=== PATIENT | male | born 1945 | race Caucasian/White ===

== ENCOUNTER 2016-11-21 08:28 | Day surgery (SDC) | payer MEDICARE, OTHER ==
[2016-11-13 08:48] VITALS: BMI 35.5
[~2016-11-21 08:28] MED LIST: LACTATED RINGERS 1,000 ML IV SCH; LIDOCAINE 1% 20 ML VIAL (10MG/ML) FOR IV START INTRADERMA PRN; SODIUM CHLORIDE 0.9% 1,000 ML IV SCH; ceFAZolin 1,000 MG in SODIUM CHLORIDE 0.9% IRRIGATIO 250 ML IRRIGATION ONE; ceFAZolin 2 GM in SODIUM CHLORIDE 0.9% 100 ML IVPB ONE
[2016-11-21] MEDS ORDERED: SODIUM CHLORIDE 0.9% 1,000 ML IV ONE (09:06)
[2016-11-21 09:35] LABS: Glucose,Whole Blood 170 mg/dL (75-99)
[2016-11-21] MEDS ORDERED: MIDAZOLAM 2 MG/2 ML VIAL ONE (10:37)
[2016-11-21] MEDS ORDERED: diphenhydrAMINE 50 MG/ML 1 ML VIAL ONE (10:37)
[2016-11-21] MEDS ORDERED: fentaNYL (PF) 50 MCG/ML 2 ML AMP ONE (10:37)
[2016-11-21] MEDS ORDERED: PROPOFOL 10 MG/ML 20 ML VIAL IV ONE (10:37)
[2016-11-21] MEDS ORDERED: IODIXANOL 320 MG/ML 100 ML IV ONE (11:00)
[2016-11-21] MEDS ORDERED: ACETAMINOPHEN TAB 325 MG TAB PO PRN (12:27)
[2016-11-21 13:36] LABS: Glucose,Whole Blood 187 mg/dL (75-99)
[2016-11-21 17:18] LABS: Glucose,Whole Blood 171 mg/dL (75-99)
[2016-11-21] MEDS ORDERED: VIT A,C & E-LUTEIN-MINERALS 1 EACH TAB PO SCH (18:00)
[2016-11-21] MEDS: ceFAZolin 2 GM in SODIUM CHLORIDE 0.9% 100 ML IVPB SCH ×2 (18:40→23:37)
[2016-11-21] MEDS: LISINOPRIL 20 MG TAB PO SCH (19:41)
[2016-11-21] MEDS: HYDROcodone/APAP 5-325MG 1 EACH TAB PO PRN (19:42)
[2016-11-21] MEDS: METOPROLOL TARTRATE 50 MG TAB PO SCH (19:42)
[2016-11-21 20:52] LABS: Glucose,Whole Blood 152 mg/dL (75-99)
[2016-11-21] MEDS ORDERED: NIACIN TR 500 MG CAPSULE.ER PO SCH (21:00)
[2016-11-21] MEDS ORDERED: ASPIRIN 81 MG CHEW PO SCH (21:00)
[2016-11-21] MEDS ORDERED: ATORVASTATIN 80 MG TAB PO SCH (21:00)
[2016-11-21] MEDS ORDERED: FERROUS SULFATE 325 MG TAB PO SCH (21:00)
--- NOTE | 2016-11-21 21:21 | P.PCN ---
Date of Procedure: 11/21/16 Preoperative Diagnosis: Ischemic cardiomyopathy and congestive heart failure Postoperative Diagnosis: The same Procedure(s) Performed: Upgrading the pacemaker to AICD, axillary venography Description of Procedure: HISTORY: This is a 70-year-old gentleman with history of ischemic cardiomyopathy and permanent pacemaker implantation being followed by Dr. Dykes. Because of persistent severe cardiomyopathy with ejection fraction of 30 -35%, Dr. Dykes requested upgrading the pacemaker to AICD. CONSENT:I have discussed the risks, benefits and alternative therapies for the above-mentioned procedure and for both sedation/analgesia as well as necessary blood product administration, if indicated, as they pertain to this patient. The patient has indicated understanding and acceptance of the risks and procedures discussed. PROCEDURE: Patient was brought to the lab in a fasting state. Patient was prepped and draped in the usual fashion. Patient was given IV sedation with fentanyl and Versed. The skin below the left clavicle was infiltrated with lidocaine. An incision was made along the old scar with extension both inferiorly and superiorly to accommodate AICD. It was deepened until the pectoral fascia was exposed. The pocket was opened and the old pulse generator was pulled out of the pocket. As patient is pacemaker dependent the leads were Connected to the old generator. Subsequently axillary venography was performed. Using Seldinger technique the axillary vein was entered and a new wire was advanced into the superior vena cava. A new sheath was advanced after using the several dilators for dilatation of the track. The ventricular lead was subsequently advanced through the sheath and was placed near the left ventricular apical region slightly away from the previous lead. A satisfactory position was obtained and the lead was screwed in. LEADS: ATRIAL: The atrial lead is manufactured by [employer] model number is 4135. The serial number is [id number]. VENTRICULAR: The old ventricular lead is manufactured by [employer] model number is 4136 and serial number is [id number]. THE NEW VENTRICULAR LEAD and this is manufactured by [employer]. Model number is 0292 and the serial number is [id number]. The old ventricular lead was capped and was sutured to the floor. THRESHOLDS: ATRIUM: The minimum pacing threshold was 0.7 V at pulse width of 0.5 ms with impedance of 600 ohms. . P-wave: 3.8 mV VENTRICLE : The minimum patient threshold was 0.7 V at pulse width 0.5 ms the impedance was 705 ohms R-wave: Could not be measured The leads and pulse generator remained in the pocket after it was washed with antibiotics. Pocket was closed in the usual fashion. The fascia was closed with 2-0 Prolene ,the subcutaneous tissue was closed with 3-0 Prolene and the skin was closed with 4-0 Prolene. DFT TESTING: Attempts were made to induce ventricular fibrillation with a T shock and burst pacing without success PROGRAMMING: ARNOLDO PROGRAMMING: MODE: DDDR mode RATE: 60/1 20 bpm : TACHYCARDIA PROGRAMMING: VF zone: Programmed to a rate of 205 bpm. Shocks were programmed at 41 J 8. VT zone. Programmed to a rate of 1 75 bpm. There appears were programmed to 31 J 1 followed by 41 J 5. FINAL IMPRESSION: #1 axillary venography #2. Successful implantation of dual- chamber AICD. #3 Capping of the old ventricular lead COMPLICATIONS: None PLAN: Continuation of medical therapy with antibiotics and resumption of home medication and will hold antiplatelet agents for 24-48 hours
[2016-11-22] MEDS: ceFAZolin 2 GM in SODIUM CHLORIDE 0.9% 100 ML IVPB SCH ×2 (06:02→11:04)
[2016-11-22 07:19] LABS: Glucose,Whole Blood 133 mg/dL (75-99)
[2016-11-22] MEDS ORDERED: PANTOPRAZOLE 40 MG TABLET PO SCH (07:30)
[2016-11-22 08:01] VITALS: RESP 18
--- NOTE | 2016-11-22 08:12 | XR ---
EXAMINATION TYPE: XR chest 2V DATE OF EXAM: 11/22/2016 6:22 AM COMPARISON: 05/13/2015 HISTORY: 70-year-old male lead placement check TECHNIQUE: Frontal and lateral views FINDINGS: Left anterior chest wall AICD generator with right atrial and 2 right ventricular leads. Median baca otomy wires are present with prosthetic aortic valve. Heart is upper limits of normal in size. Aorta and pulmonary vasculature within normal limits. No con solidation or pleural effusion. IMPRESSION: Left chest wall AICD generator with a right atrial and [address].
--- NOTE | 2016-11-22 08:33 | P.DS ---
Providers Date of admission: 11/21/2015 Attending physician: Edilberto Gallego Primary care physician: Stated None Hospital Course: This 70-year-old gentleman with ischemic cardiomyopathy and congestive heart failure was brought in for upgrading of the pacemaker to AICD. Patient had procedure done yesterday. He tolerated the procedure very well. Ventricular fibrillation could not be induced during the procedure. Patient developed mild hematoma around the pocket which seemed to be soft. Patient has remained stable overnight. His chest x-ray shows stable lead position without any evidence of pneumothorax or other complications. Device is interrogated this morning which showed stable thresholds. Patient is being discharged home. Patient is instructed to hold aspirin and Plavix and also metformin for 24 hours. Patient also instructed not to lift any heavy weights and also avoid any lifting or pushing and pulling. He'll keep his left arm below the shoulder level. He'll keep the incision dry for the next one week. Patient will be followed in the office in one week. Home medication will be resumed except holding metformin Plavix and aspirin for 24 hours. Prophylactic antibiotic be provided for 3 days. Plan - Discharge Summary New Discharge Prescriptions: Cephalexin [Keflex] 500 mg PO Q8HR #10 cap Discharge Medication List Aspirin 81 mg PO HS 05/11/15 [History] Atorvastatin [Lipitor] 80 mg PO HS 05/11/15 [History] Fenofibrate Nanocrystallized [Tricor] 145 mg PO DAILY 05/11/15 [History] Ferrous Sulfate [Feosol] 325 mg PO HS 05/11/15 [History] Lansoprazole [Prevacid] 30 mg PO DAILY 05/11/15 [History] Metoprolol Tartrate [Lopressor] 100 mg PO BID 05/11/15 [History] Vit A/Vit C/Vit E/Zinc/Copper [ICAPS SOFTGEL] 1 cap PO BID 05/11/15 [History] amLODIPine [Norvasc] 5 mg PO DAILY 05/11/15 [History] Clopidogrel [Plavix] 75 mg PO DAILY 11/29/15 [History] Lisinopril [Zestril] 20 mg PO BID 09/28/16 [History] Niacin [Niaspan] 500 mg PO HS 09/28/16 [History] metFORMIN HCL [Glucophage Xr] 500 mg PO DAILY 10/24/16 [History] Cephalexin [Keflex] 500 mg PO Q8HR #10 cap 11/22/16 [Rx] Follow up Appointment(s)/Referral(s): Edilberto Gallego MD [STAFF PHYSICIAN] - 1 Week Discharge Disposition: HOME SELF-CARE
[2016-11-22] MEDS: HYDROcodone/APAP 5-325MG 1 EACH TAB PO PRN (08:42)
[2016-11-22] MEDS: METOPROLOL TARTRATE 50 MG TAB PO SCH (08:42)
[2016-11-22] MEDS: LISINOPRIL 20 MG TAB PO SCH (08:42)
[2016-11-22] MEDS ORDERED: FENOFIBRATE 160 MG TAB PO SCH (09:00)
[2016-11-22] MEDS ORDERED: amLODIPine 5 MG TAB PO SCH (09:00)
[2016-11-22 12:06] VITALS: BP 165/79; PULSE 65; TEMP 98.7
== END 2016-11-22 12:28 | disposition home or self-care (01) ==
LOC: CATHEP 08:28 → 3OBS 12:27 → CATHEP 11-22 12:28
PROVIDERS: ATTEND Internal Medicine Cardiovascular Disease
DX: I25.5 Ischemic cardiomyopathy (principal); I50.42 Chronic combined systolic (congestive) and diastolic (congestive) heart failure; Z00.6 Encounter for examination for normal comparison and control in clinical research program; Z95.1 Presence of aortocoronary bypass graft; I10 Essential (primary) hypertension; E78.5 Hyperlipidemia, unspecified; Z95.2 Presence of prosthetic heart valve; E11.9 Type 2 diabetes mellitus without complications; Z79.84 Long term (current) use of oral hypoglycemic drugs; Z82.49 Family history of ischemic heart disease and other diseases of the circulatory system; Z79.82 Long term (current) use of aspirin; Z79.02 Long term (current) use of antithrombotics/antiplatelets; Z79.52 Long term (current) use of systemic steroids; Z79.899 Other long term (current) drug therapy; Z91.013 Allergy to seafood; Z91.09 Other allergy status, other than to drugs and biological substances; Z45.010 Encounter for checking and testing of cardiac pacemaker pulse generator [battery]
CPT/HCPCS: 33249; 33233; 71020; C1894; C1769; C1895; C1721; J2250; J1200; Q9967; J0690 ×2; J3010; J2704

== ENCOUNTER 2016-12-13 09:53 | Day surgery (SDC) | payer MEDICARE, OTHER ==
[2016-12-11 15:32] VITALS: BMI 36.9
[~2016-12-13 09:53] MED LIST changes: -LACTATED RINGERS 1,000 ML IV SCH; -LIDOCAINE 1% 20 ML VIAL (10MG/ML) FOR IV START INTRADERMA PRN; -SODIUM CHLORIDE 0.9% 1,000 ML IV SCH; -ceFAZolin 2 GM in SODIUM CHLORIDE 0.9% 100 ML IVPB ONE
[2016-12-13] MEDS: SODIUM CHLORIDE 0.9% 1,000 ML IV SCH (10:15)
[2016-12-13 10:23] LABS: Glucose,Whole Blood 138 mg/dL (75-99)
[2016-12-13 10:37] LABS: Anion Gap 10 mmol/L; Blood Urea Nitrogen 18 mg/dL (9-20); Calcium 9.3 mg/dL (8.4-10.2); Carbon Dioxide 25 mmol/L (22-30); Chloride 106 mmol/L (98-107); Glucose 143 mg/dL (74-99); Non-African American GFR(MDRD) >60 (>60 ml/min/1.73 sqM); Potassium 4.9 mmol/L (3.5-5.1); Sodium 141 mmol/L (137-145)
[2016-12-13 11:10] LABS: Basophils % (A) 1 %; CH 30.9; CHCM 32.9; Eosinophils # (A) 0.3 k/uL (0-0.7); Eosinophils % (A) 4 %; HDW 2.83; HGB 13.3 gm/dL (13.0-17.5); Luc # (Auto) 0.26; Luc % (Auto) 4; Lymphocytes # (A) 1.1 k/uL (1.0-4.8); Lymphocytes % (A) 18 %; MCH 31.3 pg (25.0-35.0); MCHC 33.2 g/dL (31.0-37.0); MCV 94.4 fL (80.0-100.0); Mean Platelet Volume 7.8; Monocytes # (A) 0.5 k/uL (0-1.0); Monocytes % (A) 9 %; Neutrophils # (A) 3.7 k/uL (1.3-7.7); Neutrophils % (A) 64 %; RBC 4.23 m/uL (4.30-5.90); RDW 13.3 % (11.5-15.5); WBC 5.9 k/uL (3.8-10.6); WBC (Perox) 6.17
[2016-12-13] MEDS: MIDAZOLAM 2 MG/2 ML VIAL IV ONE ×2 (11:30→11:51)
[2016-12-13] MEDS ORDERED: fentaNYL (PF) 50 MCG/ML 2 ML AMP IV ONE (11:34)
[2016-12-13] MEDS ORDERED: LIDOCAINE 2% INJ 20 MG/ML SQ ONE ×3 (11:35→11:44)
[2016-12-13] MEDS ORDERED: ceFAZolin 1,000 MG/50 ML BAG (PMX) IVPB ONE (11:35)
[2016-12-13] MEDS: ceFAZolin 2 GM in SODIUM CHLORIDE 0.9% 100 ML IVPB ONE ×2 (11:35→11:39)
[2016-12-13] MEDS ORDERED: MIDAZOLAM 2 MG/2 ML VIAL ONE (11:37)
[2016-12-13] MEDS ORDERED: fentaNYL (PF) 50 MCG/ML 2 ML AMP ONE (11:44)
[2016-12-13] MEDS ORDERED: LIDOCAINE 1% INJ 10MG/ML (20 ML MDV) SQ ONE ×2 (11:44→11:57)
[2016-12-13] MEDS ORDERED: ACETAMINOPHEN TAB 325 MG TAB PO PRN (12:17)
--- NOTE | 2016-12-13 12:22 | P.PCN ---
Date of Procedure: 12/13/16 Preoperative Diagnosis: Hematoma of AICD pocket Postoperative Diagnosis: The same Procedure(s) Performed: Evacuation of the hematoma and revision of the pocket Description of Procedure: This patient was brought in for evacuation of the hematoma. Patient had a upgrading of the pacemaker to AICD about 2 weeks ago. Patient developed moderate sized hematoma which seemed to be not resolving and in fact it is slightly bigger. There is no evidence of any infection fever or chills patient was brought in for elective evacuation of hematoma. Patient was prepped and draped in the usual fashion. His tachycardia therapies turned off. Patient was given IV Versed and fentanyl. The skin is infiltrated with lidocaine along the old incision. Incision was made along the old incision and was deepened until the device is exposed. About 30 mL of clots and hematoma was evacuated. The pocket was irrigated with antibiotic solution and suctioned. The pocket was closed in the usual fashion. The tachycardia therapies for program on. Patient thresholds remained stable. Patient is being admitted to the observation unit for Prophylactic antibiotic administration. If stable patient be discharged home tomorrow.
[2016-12-13] MEDS: HYDROcodone/APAP 5-325MG 1 EACH TAB PO PRN ×2 (12:56→23:25)
[2016-12-13 17:16] LABS: Glucose,Whole Blood 168 mg/dL (75-99)
[2016-12-13] MEDS: ceFAZolin 2 GM in SODIUM CHLORIDE 0.9% 100 ML IVPB SCH ×2 (18:34→23:25)
[2016-12-13] MEDS: LISINOPRIL 20 MG TAB PO SCH (20:31)
[2016-12-13] MEDS: METOPROLOL TARTRATE 50 MG TAB PO SCH (20:32)
[2016-12-13] MEDS ORDERED: NIACIN TR 500 MG CAPSULE.ER PO SCH (21:00)
[2016-12-13] MEDS ORDERED: FERROUS SULFATE 325 MG TAB PO SCH (21:00)
[2016-12-13] MEDS ORDERED: ATORVASTATIN 80 MG TAB PO SCH (21:00)
[2016-12-13] MEDS: VIT A,C & E-LUTEIN-MINERALS 1 EACH TAB PO SCH (21:09)
[2016-12-13 22:14] LABS: Glucose,Whole Blood 120 mg/dL (75-99)
[2016-12-14] MEDS: ceFAZolin 2 GM in SODIUM CHLORIDE 0.9% 100 ML IVPB SCH ×3 (05:30→12:45)
[2016-12-14 06:41] LABS: Glucose,Whole Blood 125 mg/dL (75-99)
[2016-12-14] MEDS ORDERED: PANTOPRAZOLE 40 MG TABLET PO SCH (07:30)
[2016-12-14 08:07] VITALS: RESP 18
[2016-12-14] MEDS: LISINOPRIL 20 MG TAB PO SCH (08:16)
[2016-12-14] MEDS: VIT A,C & E-LUTEIN-MINERALS 1 EACH TAB PO SCH (08:16)
[2016-12-14] MEDS: METOPROLOL TARTRATE 50 MG TAB PO SCH (08:17)
[2016-12-14] MEDS ORDERED: FENOFIBRATE 160 MG TAB PO SCH (09:00)
[2016-12-14] MEDS ORDERED: amLODIPine 5 MG TAB PO SCH (09:00)
[2016-12-14] MEDS ORDERED: metFORMIN 500 MG TAB PO SCH (09:00)
--- NOTE | 2016-12-14 11:01 | P.DS ---
Providers Attending physician: Edilberto Gallego Primary care physician: Stated None - Discharge Diagnosis(es) (1) History of automatic internal cardiac defibrillator (AICD) Current Visit: Yes Status: Acute (2) Coronary artery disease Current Visit: No Status: Acute (3) Diabetes Current Visit: No Status: Acute (4) Hx of CABG Current Visit: No Status: Acute (5) Hx of aortic valve replacement Current Visit: No Status: Acute (6) Hyperlipemia Current Visit: No Status: Acute (7) PAD (peripheral artery disease) Current Visit: No Status: Acute Priority: High (8) Hematoma of implantable cardioverter-defibrillator (ICD) pocket Current Visit: Yes Status: Acute Hospital Course: Patient had upgrading of permanent pacemaker to AICD about 2 weeks ago. Patient developed a hematoma of the pocket. For the last 2 weeks the size of the hematoma didn't get better. Patient is advised to have evacuation.. Patient had the procedure yesterday to evacuate the hematoma. About 30-40 mL of clot and fluid was aspirated. Patient tolerated the procedure well. Patient looks stable. patient doesn't complain of any pain. The site looks good without any hematoma. He is completing antibiotic course. He is being discharged home in a stable condition. He will restart his aspirin and Plavix starting tomorrow. Follow-up in the office in one week time. Patient will keep the area dry for one week .patient will continue prophylactic antibiotics for another 5 days Plan - Discharge Summary Discharge Medication List Aspirin 81 mg PO HS 05/11/15 [History] Atorvastatin [Lipitor] 80 mg PO HS 05/11/15 [History] Fenofibrate Nanocrystallized [Tricor] 145 mg PO DAILY 05/11/15 [History] Ferrous Sulfate [Feosol] 325 mg PO HS 05/11/15 [History] Lansoprazole [Prevacid] 30 mg PO DAILY 05/11/15 [History] Metoprolol Tartrate [Lopressor] 100 mg PO BID 05/11/15 [History] Vit A/Vit C/Vit E/Zinc/Copper [ICAPS SOFTGEL] 1 cap PO BID 05/11/15 [History] amLODIPine [Norvasc] 5 mg PO DAILY 05/11/15 [History] Clopidogrel [Plavix] 75 mg PO DAILY 11/29/15 [History] Lisinopril [Zestril] 20 mg PO BID 09/28/16 [History] Niacin [Niaspan] 500 mg PO HS 09/28/16 [History] metFORMIN HCL [Glucophage Xr] 500 mg PO DAILY 10/24/16 [History] Cephalexin [Keflex] 500 mg PO Q8HR #10 cap 11/22/16 [Rx] Follow up Appointment(s)/Referral(s): Edilberto Gallego MD [STAFF PHYSICIAN] - 1 Week Discharge Disposition: HOME SELF-CARE
[2016-12-14 12:18] LABS: Glucose,Whole Blood 162 mg/dL (75-99)
[2016-12-14 12:36] VITALS: BP 154/84; TEMP 98.5
[2016-12-14 12:52] VITALS: PULSE 0
[2016-12-14] MEDS: SODIUM CHLORIDE 0.9% 1,000 ML IV SCH (15:22)
== END 2016-12-14 14:45 | disposition home or self-care (01) ==
LOC: CATHEP 09:53 → 3OBS 12:16 → CATHEP 12-14 14:45
PROVIDERS: ATTEND Internal Medicine Cardiovascular Disease
DX: I97.638 Postprocedural hematoma of a circulatory system organ or structure following other circulatory system procedure (principal); Y83.8 Other surgical procedures as the cause of abnormal reaction of the patient, or of later complication, without mention of misadventure at the time of the procedure; Y71.0 Diagnostic and monitoring cardiovascular devices associated with adverse incidents; I25.5 Ischemic cardiomyopathy; I25.10 Atherosclerotic heart disease of native coronary artery without angina pectoris; Z95.1 Presence of aortocoronary bypass graft; I10 Essential (primary) hypertension; E78.5 Hyperlipidemia, unspecified; I50.42 Chronic combined systolic (congestive) and diastolic (congestive) heart failure; I73.9 Peripheral vascular disease, unspecified; Z95.820 Peripheral vascular angioplasty status with implants and grafts; I35.8 Other nonrheumatic aortic valve disorders; Z95.2 Presence of prosthetic heart valve; E11.9 Type 2 diabetes mellitus without complications; Z82.49 Family history of ischemic heart disease and other diseases of the circulatory system; Z79.01 Long term (current) use of anticoagulants; Z79.84 Long term (current) use of oral hypoglycemic drugs; Z79.82 Long term (current) use of aspirin; Z79.52 Long term (current) use of systemic steroids; Z79.899 Other long term (current) drug therapy; Z91.09 Other allergy status, other than to drugs and biological substances
CPT/HCPCS: 10140; 80048; 85025; 99155; 99157; J2250; J0690 ×2; J2001; J3010

== ENCOUNTER 2017-05-10 06:55 | Day surgery (SDC) | payer MEDICARE, OTHER ==
[2017-04-17 15:12] VITALS: BMI 36.3
[~2017-05-10 06:55] MED LIST changes: +LACTATED RINGERS 1,000 ML IV SCH; +LIDOCAINE 1% 20 ML VIAL (10MG/ML) FOR IV START INTRADERMA PRN; -ceFAZolin 1,000 MG in SODIUM CHLORIDE 0.9% IRRIGATIO 250 ML IRRIGATION ONE
[2017-05-10 07:10] VITALS: TEMP 98
[2017-05-10] MEDS ORDERED: LACTATED RINGERS 1,000 ML IV ONE (07:15)
[2017-05-10 07:16] LABS: Glucose,Whole Blood 111 mg/dL (75-99)
[2017-05-10] MEDS ORDERED: PROPOFOL 10 MG/ML 20 ML VIAL IV ONE (07:31)
--- NOTE | 2017-05-10 08:13 | P.PCN ---
Date of Procedure: 05/10/17 Preoperative Diagnosis: Postoperative Diagnosis: Procedure(s) Performed: BRIEF HISTORY: Patient is a 71-year-old pleasant male, scheduled for an elective colonoscopy as a part of evaluation of prior history of colon polyps. His last colonoscopy was in 2010. PROCEDURE PERFORMED: Colonoscopy with snare polypectomy. PREOPERATIVE DIAGNOSIS: History of colon polyps. IV sedation per Anesthesia. PROCEDURE: After informed consent was obtained, the patient, was brought into the endoscopy unit. IV sedation was administered by Anesthesia under continuous monitoring. Digital rectal examination was normal. Initially the Olympus CF- 160 flexible video colonoscope was then inserted in the rectum, gradually advanced into the cecum without any difficulty. Careful examination was performed as the scope was gradually being withdrawn. Ileocecal valve and the appendiceal orifice were visualized and appeared normal. Prep was excellent. Mucosa of the cecum, appeared normal. In the ascending colon there was a 3 cm broad-based polyp that was removed by piecemeal snare polypectomy and complete polypectomy was accomplished. In the hepatic flexure there were 2 polyps measuring 1 cm in size both of which were removed by snare polypectomy. In the hospital transverse colon there were 2 polyps both of which measuring 1.5-2 cm in size and broad-based removed by snare polypectomy. In the rectum there was a 5 mm polyp removed by snare polypectomy. Moderate diverticulosis seen. The rest of the ascending colon, transverse colon, descending colon, sigmoid colon, and rectum appeared normal. Retroflexion was performed in the rectum and no lesions were seen. The patient tolerated the procedure well. IMPRESSION: 3 cm was broad-based ascending colon polyp serous was snare polypectomy 1 cm 2 hepatic flexure polyp status post snare polypectomy 2 broad-based polyps in the proximal transverse colon measuring 1.5-2 cm in size status post snare polypectomy. 5 mm mid rectal polyp status post polypectomy Moderate diverticulosis. RECOMMENDATIONS: Findings of this examination were discussed with the patient as well as his family. He was advised to follow with the biopsy results. If the biopsies are negative adenoma he can have a repeat colonoscopy in 2-3 years. Implants: Indications for Procedure: Operative Findings: Description of Procedure:
[2017-05-10 08:18] VITALS: RESP 16
[2017-05-10 08:29] VITALS: BP 108/64; PULSE 60
== END 2017-05-10 09:16 | disposition home or self-care (01) ==
LOC: ORWHC2ENDO 06:55
PROVIDERS: ATTEND Internal Medicine Gastroenterology
DX: Z12.11 Encounter for screening for malignant neoplasm of colon (principal); C18.2 Malignant neoplasm of ascending colon; D12.3 Benign neoplasm of transverse colon; K62.1 Rectal polyp; K57.30 Diverticulosis of large intestine without perforation or abscess without bleeding; Z86.010 Personal history of colon polyps; I10 Essential (primary) hypertension; E78.5 Hyperlipidemia, unspecified; Z95.0 Presence of cardiac pacemaker; E11.9 Type 2 diabetes mellitus without complications; Z79.84 Long term (current) use of oral hypoglycemic drugs; K21.9 Gastro-esophageal reflux disease without esophagitis; Z79.02 Long term (current) use of antithrombotics/antiplatelets; Z79.82 Long term (current) use of aspirin; Z79.899 Other long term (current) drug therapy; Z91.041 Radiographic dye allergy status
CPT/HCPCS: 88305; 45385; J2704

== ENCOUNTER → 2017-06-03 | Outpatient (CLI) | payer MEDICARE, OTHER ==
[2017-06-03 13:26] LABS: CH 29.8; CHCM 33.3; HCT 35.9 % (39.0-53.0); HDW 2.87; HGB 12.2 gm/dL (13.0-17.5); MCH 30.7 pg (25.0-35.0); MCHC 34.1 g/dL (31.0-37.0); MCV 90.1 fL (80.0-100.0); RBC 3.98 m/uL (4.30-5.90); RDW 14.3 % (11.5-15.5)
[2017-06-03 13:49] LABS: Anion Gap 12 mmol/L; Blood Urea Nitrogen 18 mg/dL (9-20); Carbon Dioxide 26 mmol/L (22-30); Chloride 103 mmol/L (98-107); Non-African American GFR(MDRD) >60 (>60 ml/min/1.73 sqM); Potassium 4.8 mmol/L (3.5-5.1); Sodium 141 mmol/L (137-145)
== END | disposition home or self-care (01) ==
LOC: LABPAT 13:08
PROVIDERS: ATTEND Internal Medicine Interventional Cardiology
DX: Z01.812 Encounter for preprocedural laboratory examination (principal); I70.213 Atherosclerosis of native arteries of extremities with intermittent claudication, bilateral legs
CPT/HCPCS: 80051; 82565; 84520; 85027

== ENCOUNTER → 2017-06-10 | Day surgery (SDC) | payer MEDICARE, OTHER ==
[2017-06-03 14:34] VITALS: BMI 35.3
[~2017-06-10] MED LIST changes: +ALPRAZolam 0.25 MG TAB PO PRN; +ASPIRIN 325 MG TAB PO STA; +HEPARIN SODIUM 1,000 UN/ML (10ML VL) IV ONE; +INSULIN LISPRO (humaLOG) 300 UNIT/3 ML VIAL SQ ONE; +IODIXANOL 320 MG/ML 100 ML INTRAARTER ONE; -LACTATED RINGERS 1,000 ML IV SCH; -LIDOCAINE 1% 20 ML VIAL (10MG/ML) FOR IV START INTRADERMA PRN; +LIDOCAINE 2% INJ 20 MG/ML SQ ONE; +MIDAZOLAM 2 MG/2 ML VIAL IV ONE; +RX INFO: IV CONTRAST WAS GIVEN 1 EACH MISC MISCELLANE PRN; +SODIUM CHLORIDE 0.9% 1,000 ML IV SCH; +SODIUM CHLORIDE 0.9% 1,000 ML in EMPTY BAG 1 BAG IV ONE
[2017-06-10 07:09] VITALS: RESP 20
[2017-06-10 07:12] LABS: Glucose,Whole Blood 189 mg/dL (75-99)
[2017-06-10] MEDS: VERAPAMIL SYRINGE (5 MG/10 ML) INTRAARTER ONE ×2 (07:55→08:28)
[2017-06-10 08:52] VITALS: TEMP 98
--- NOTE | 2017-06-10 09:01 | IR ---
EXAMINATION TYPE: IR angio abdominal w runoff DATE OF EXAM: 06/10/2017 CLINICAL HISTORY: Left leg pain TECHNIQUE: Fluoroscopy. COMPARISON: None. FINDINGS: Fluoroscopic guidance was provided during angiogram procedure performed by Dr. Abbott. A to elaina of 6.2 minutes of fluoroscopic time was utilized during the procedure and multiple cine images ar e acquired but not saved to PACS. Please refer to procedure note for further details as I was not pre sent nor performed procedure. IMPRESSION: As Above.
[2017-06-10 11:50] LABS: Glucose,Whole Blood 240 mg/dL (75-99)
[2017-06-10 14:33] VITALS: PULSE 70
[2017-06-10 14:39] VITALS: BP 131/72
--- NOTE | 2017-06-10 21:48 | PCN ---
DATE OF PROCEDURE: 06/10/2017 PERFORMING PHYSICIAN: Fabian Abbott M.D., gage designer. PROCEDURES PERFORMED: 1. Abdominal aortogram. 2. Bilateral lower extremity runoff. 3. Selective left external iliac artery angiogram. INDICATION: This is a pleasant 71-year-old gentleman who is known to have PAD who underwent multiple angioplasties in the past. He was experiencing severe left leg discomfort. He underwent an arterial duplex study which showed severe disease of the left SFA, and he was brought today to undergo an abdominal aortogram and bilateral lower extremity runoff. APPROACH: Right radial artery. COMPLICATIONS: None. LEVEL OF SEDATION: Moderate with a sedation length of 35 minutes. PROCEDURE DESCRIPTION: After obtaining informed consent, the patient was brought to the cardiac cemetery laborer. The right radial artery was cannulated using micropuncture technique. The micropuncture wire passed easily. Then I placed a 5 Bahamian sheath in the right radial artery. Subsequently I gave the patient 5000 units of heparin IV and 2 mg of Verapamil IA. After that I did an abdominal aortogram and bilateral lower extremity runoff using 5 Bahamian pigtail catheter, which was initially placed at the level of the renal arteries, then it was advanced into above the bifurcation of the aorta to right and left common iliac arteries. The procedure was completed without any complications. After that I did selective left external iliac artery angiogram to have a better opacification of the left SFA and left below the knee. SELECTIVE PERIPHERAL ANGIOGRAM: 1. The aorta is calcified with mild disease only. 2. Common iliac arteries. The right common iliac artery is stented. The stent is patent. The left common iliac artery appeared to be patent as well. 3. Internal iliac arteries. The right and left internal iliac arteries are patent. 4. External iliac arteries: The right and left external iliac arteries appear to have mild disease only. 5. Common femoral arteries. The right common femoral artery appeared to have mild disease only. The left common femoral artery appeared to have a lesion that seemed to be in the range of 70% to 80%. 6. Profundae. The right and left profundae are patent. 7. SFA. The right SFA appeared to be stented, with severe in-stent restenosis by the [place]. The left SFA is occluded on short segment from the mid portion and reconstitutes just above the [place]. 8. Popliteal. The right and left popliteals appeared to have mild disease only. 9. Below the knee. There is 3-vessel runoff below the knee bilaterally. CONCLUSION: 1. Mild aortoiliac disease. 2. Severe disease involving the left common femoral artery. 3. Severe bilateral SFA disease with severe in-stent restenosis of the right SFA and occluded left SFA on short segment. 4. Three-vessel runoff below the knee bilaterally. POST-PROCEDURE MANAGEMENT: The patient will be scheduled to have SENIOR CLINICAL STUDY MANAGER of the left SFA. SCOTT
== END ==
LOC: CATHCVL 06:32
PROVIDERS: ATTEND Internal Medicine Interventional Cardiology
DX: T82.856A Stenosis of peripheral vascular stent, initial encounter (principal); I11.0 Hypertensive heart disease with heart failure; I50.42 Chronic combined systolic (congestive) and diastolic (congestive) heart failure; Z87.891 Personal history of nicotine dependence; I70.0 Atherosclerosis of aorta; E78.5 Hyperlipidemia, unspecified; I25.5 Ischemic cardiomyopathy; I47.1 Supraventricular tachycardia; E11.9 Type 2 diabetes mellitus without complications; Z79.84 Long term (current) use of oral hypoglycemic drugs; Z79.899 Other long term (current) drug therapy; Z91.09 Other allergy status, other than to drugs and biological substances
CPT/HCPCS: 36216; 75625; 75716; 99152; 99153; C1769 ×2; C1894; J2001; J2250; Q9967; J1644

== ENCOUNTER 2017-06-19 11:21 | Day surgery (SDC) | payer MEDICARE, OTHER ==
[2017-06-14 10:05] VITALS: BMI 34.7
[~2017-06-19 11:21] MED LIST changes: -ALPRAZolam 0.25 MG TAB PO PRN; -ASPIRIN 325 MG TAB PO STA; -HEPARIN SODIUM 1,000 UN/ML (10ML VL) IV ONE; -INSULIN LISPRO (humaLOG) 300 UNIT/3 ML VIAL SQ ONE; -IODIXANOL 320 MG/ML 100 ML INTRAARTER ONE; -LIDOCAINE 2% INJ 20 MG/ML SQ ONE; -MIDAZOLAM 2 MG/2 ML VIAL IV ONE; -RX INFO: IV CONTRAST WAS GIVEN 1 EACH MISC MISCELLANE PRN; -SODIUM CHLORIDE 0.9% 1,000 ML IV SCH
[2017-06-19 12:40] LABS: Glucose,Whole Blood 181 mg/dL (75-99)
[2017-06-19] MEDS ORDERED: MIDAZOLAM 2 MG/2 ML VIAL IV ONE (14:04)
[2017-06-19] MEDS ORDERED: LIDOCAINE 2% INJ 20 MG/ML SQ ONE (14:05)
[2017-06-19] MEDS: fentaNYL (PF) 50 MCG/ML 2 ML AMP IV ONE ×2 (14:07→15:48)
[2017-06-19] MEDS ORDERED: SODIUM CHLORIDE 0.9% 1,000 ML IV ONE (14:18)
[2017-06-19] MEDS ORDERED: NITROGLYCERIN 1000MCG/10ML SYRINGE INTRAARTER ONE (15:32)
[2017-06-19] MEDS ORDERED: niCARdipine Syringe (1,000 mcg/10 mL) INTRAARTER ONE (15:53)
[2017-06-19] MEDS ORDERED: CLOPIDOGREL 75 MG TAB PO ONE (16:00)
[2017-06-19] MEDS ORDERED: IODIXANOL 320 MG/ML 100 ML INTRAARTER ONE (16:01)
[2017-06-19] MEDS ORDERED: diphenhydrAMINE 25 MG CAP PO PRN (16:12)
[2017-06-19] MEDS ORDERED: predniSONE 20 MG TAB PO PRN (16:12)
[2017-06-19] MEDS ORDERED: SODIUM CHLORIDE 0.9% 1,000 ML IV SCH (16:15)
[2017-06-19] MEDS ORDERED: NON-FORMULARY DRUG (Ranitidine Hcl [Zantac] 150 MG) PO SCH (16:15)
[2017-06-19 17:42] LABS: Glucose,Whole Blood 149 mg/dL (75-99)
[2017-06-19 18:59] VITALS: RESP 18
[2017-06-19] MEDS: LISINOPRIL 20 MG TAB PO SCH (20:05)
[2017-06-19] MEDS: METOPROLOL TARTRATE 50 MG TAB PO SCH (20:05)
[2017-06-19] MEDS: VIT A,C & E-LUTEIN-MINERALS 1 EACH TAB PO SCH (20:05)
[2017-06-19 20:42] LABS: Glucose,Whole Blood 186 mg/dL (75-99)
[2017-06-19] MEDS ORDERED: NIACIN TR 500 MG CAPSULE.ER PO SCH (21:00)
[2017-06-19] MEDS ORDERED: FERROUS SULFATE 325 MG TAB PO SCH (21:00)
[2017-06-19] MEDS ORDERED: ATORVASTATIN 80 MG TAB PO SCH (21:00)
[2017-06-19] MEDS ORDERED: ASPIRIN 81 MG CHEW PO SCH (21:00)
[2017-06-20 05:54] LABS: Glucose,Whole Blood 120 mg/dL (75-99)
[2017-06-20 06:01] LABS: Basophils % (A) 0 %; CH 30.6; CHCM 32.9; Eosinophils % (A) 0 %; HCT 38.5 % (39.0-53.0); HDW 2.51; HGB 12.4 gm/dL (13.0-17.5); Luc # (Auto) 0.27; Luc % (Auto) 2; Lymphocytes # (A) 1.6 k/uL (1.0-4.8); Lymphocytes % (A) 11 %; MCH 30.1 pg (25.0-35.0); MCHC 32.3 g/dL (31.0-37.0); MCV 93.2 fL (80.0-100.0); Mean Platelet Volume 8.9; Monocytes # (A) 0.8 k/uL (0-1.0); Monocytes % (A) 6 %; Neutrophils # (A) 11.5 k/uL (1.3-7.7); Neutrophils % (A) 81 %; RBC 4.13 m/uL (4.30-5.90); RDW 14.7 % (11.5-15.5); WBC 14.3 k/uL (3.8-10.6); WBC (Perox) 14.89
[2017-06-20 06:10] LABS: Anion Gap 11 mmol/L; Blood Urea Nitrogen 17 mg/dL (9-20); Calcium 8.9 mg/dL (8.4-10.2); Carbon Dioxide 23 mmol/L (22-30); Chloride 106 mmol/L (98-107); Glucose 113 mg/dL (74-99); Non-African American GFR(MDRD) >60 (>60 ml/min/1.73 sqM); Sodium 140 mmol/L (137-145)
[2017-06-20] MEDS: LISINOPRIL 20 MG TAB PO SCH (08:29)
[2017-06-20] MEDS: METOPROLOL TARTRATE 50 MG TAB PO SCH (08:29)
[2017-06-20] MEDS: VIT A,C & E-LUTEIN-MINERALS 1 EACH TAB PO SCH (08:29)
[2017-06-20 08:32] VITALS: BP 121/57; PULSE 66; TEMP 98.5
[2017-06-20] MEDS ORDERED: FENOFIBRATE 160 MG TAB PO SCH (09:00)
[2017-06-20] MEDS ORDERED: CLOPIDOGREL 75 MG TAB PO SCH (09:00)
[2017-06-20] MEDS ORDERED: SPIRONOLACTONE 25 MG TAB PO SCH (09:00)
[2017-06-20] MEDS ORDERED: amLODIPine 5 MG TAB PO SCH (09:00)
[2017-06-20] MEDS ORDERED: PANTOPRAZOLE 40 MG TABLET PO SCH (09:00)
--- NOTE | 2017-06-20 11:38 | PCN ---
PERFORMING PHYSICIAN: Fabian Abbott M.D., pin cleaner. PROCEDURE PERFORMED: 1. Selective left below the knee angiogram. 2. Selective left SFA angiogram. 3. Atherectomy of the left SFA using the Turbo Hawk device. 4. Successful balloon angioplasty of the proximal and mid left SFA. 5. Stenting of the distal left SFA using 7.0 x 40 mm self expandable stent with good angiographic results. 6. Intravascular ultrasound of the left SFA. 7. Selective right common femoral artery angiogram. INDICATIONS: This is a pleasant 71 -year-old gentleman who was experiencing severe claudication of the left leg. He underwent peripheral angiogram a few weeks ago and that showed occluded left SFA. He was brought today to undergo a RETAIL ROUTE SUPERVISOR. APPROACH: Right common femoral artery. COMPLICATIONS: None. LEVEL OF SEDATION: Moderate with a sedation length of one hour and 56 minutes. PROCEDURE DESCRIPTION: After obtaining informed consent, the patient was brought to the cardiac laborer carpentry dock. The right common femoral artery was cannulated using micropuncture technique. The micropuncture wire passed easily and then I placed a 6 Latvian sheath in the right common femoral artery. Subsequently I did start anticoagulation using heparin and the patient was given a total of 10, 000 units of heparin IV. Then I did selective SFA using 5 Latvian Rim catheter with 035 Advantage wire. Subsequently, I did exchange my 11 cm sheath into 55 cm 6 Latvian sheath using the Advantage wire and the tip of the sheath was positioned in the left common femoral artery. After that, I did exchange my 035 wire into 014 Ironman using an 014 using an 035 QuickCross catheter. After that, I did multiple runs of the directional atherectomy using the Turbo Hawk device and I was able to extract significant amount of plaque from the left SFA. After that, I did balloon angioplasty using 5-0 x 250 mm balloon. The following angiogram showed good angiographic results. I did intravascular ultrasound which showed me the exact diameter of the artery as well. After that I did balloon angioplasty of the stented segment in the distal left SFA using angio sculpt balloon. I did stenting of the distal left SFA using 7.0 x 40 mm balloon. The following angiogram showed good angiographic results without complication and without dissection. After that, I did exchange my long sheath into short sheath using the Advantage wire. I did selective right common femoral artery angiogram. The procedure was completed without complication. POSTPROCEDURE MANAGEMENT: 1. Dual antiplatelet therapy. 2. Risk factor modifications. 3. Follow-up with the patient. SCOTT
[2017-06-20 12:16] LABS: Hemoglobin A1C 6.1 % (4.2-6.1)
--- NOTE | 2017-06-20 14:54 | IR ---
Fluoroscopy HISTORY: Pain 34.4 minutes fluoroscopy time supplied to the referring clinician. 697 intraoperative C-arm images d ocument the procedure. See dictated report from cardiology.
--- NOTE | 2017-06-25 11:47 | DS ---
ADMISSION DATE: 06/19/2017 DISCHARGE DATE: 06/20/2017 BRIEF HISTORY: This is a pleasant 71-year-old gentleman who was admitted to the hospital yesterday and underwent successful balloon angioplasty of the left superficial femoral artery with a good angiographic results and without any complication. The procedure was performed from the right groin which is soft and nontender and without any bruises. The patient is going to be discharged home on dual antiplatelet therapy and statin and I will follow up with the patient as an outpatient in the office in a week. SCOTT
== END 2017-06-20 11:51 | disposition home or self-care (01) ==
LOC: CATHCVL 11:21 → 6SEL 18:00 → CATHCVL 06-20 11:51
PROVIDERS: ATTEND Internal Medicine Interventional Cardiology
DX: I77.9 Disorder of arteries and arterioles, unspecified (principal); I73.9 Peripheral vascular disease, unspecified; Z95.820 Peripheral vascular angioplasty status with implants and grafts; I25.10 Atherosclerotic heart disease of native coronary artery without angina pectoris; Z95.1 Presence of aortocoronary bypass graft; I25.5 Ischemic cardiomyopathy; E11.9 Type 2 diabetes mellitus without complications; E78.5 Hyperlipidemia, unspecified; I50.42 Chronic combined systolic (congestive) and diastolic (congestive) heart failure; I11.0 Hypertensive heart disease with heart failure; Z95.810 Presence of automatic (implantable) cardiac defibrillator; I44.1 Atrioventricular block, second degree; Z82.49 Family history of ischemic heart disease and other diseases of the circulatory system; Z91.09 Other allergy status, other than to drugs and biological substances; Z87.891 Personal history of nicotine dependence; Z79.84 Long term (current) use of oral hypoglycemic drugs; Z79.02 Long term (current) use of antithrombotics/antiplatelets; Z79.52 Long term (current) use of systemic steroids; Z79.899 Other long term (current) drug therapy
CPT/HCPCS: 37227; 37252; 80048; 83036; 85025; 99152; 99153 ×7; C1769 ×7; C1894 ×2; C1725 ×3; C1887; C1876; C1714; C1753; C2623 ×2; J2001; J2250; Q9967; J3010; J1644

== ENCOUNTER → 2017-07-05 | Outpatient (CLI) | payer MEDICARE, OTHER ==
--- NOTE | 2017-07-05 15:09 | CT ---
EXAMINATION TYPE: CT abdomen pelvis wo con DATE OF EXAM: 07/05/2017 COMPARISON: NONE HISTORY: Colon Cancer CT DLP: 1041.70 mGycm Automated exposure control for dose reduction was used. TECHNIQUE: Helical acquisition of images was performed from the lung bases through the pelvis. FINDINGS: The examination of the solid viscera is limited secondary to the lack of intravenous contra st. LUNG BASES: Lingular atelectasis is seen with prominent left epicardial fat. LIVER/GB: At the dome of the liver along the right hemidiaphragm on series 3 image 12 there is an are a of hypoattenuation that is thought to relate to volume averaging of the hemidiaphragm when correlat ed on sagittal and coronal planes as it has obtuse angles. There is diffuse hypoattenuation of the he patic parenchyma, more pronounced within the right lobe representing underlying hepatic steatosis. Th is finding limits evaluation for hepatic masses as does the absence of intravenous contrast. PANCREAS: No significant abnormality is seen. SPLEEN: No significant abnormality is seen. ADRENALS: No significant abnormality is seen. KIDNEYS: Right lower pole renal calculus is thought to be vascular. Similarly left-sided renal vascul ar calcifications are seen. No evidence of hydronephrosis or obstructive uropathy. Mild nonspecific b ilateral perinephric fat stranding is noted. FREE AIR: No free air is visualized RETROPERITONEAL ADENOPATHY: None visualized REPRODUCTIVE ORGANS: Prostate gland is not enlarged heterogenous containing central gland calcificati ons. URINARY BLADDER: No significant abnormality is seen. PELVIC ADENOPATHY: None visualized. OSSEOUS STRUCTURES: No suspicious abnormality. Diffuse degenerative changes are appreciated of the l umbar spine.. BOWEL: Numerous sigmoid diverticula are present with bowel wall thickening of the sigmoid colon in a long segment extending to the junction of the descending colon and sigmoid colon with circumferentia l bowel wall thickening measuring up to 1.5 cm in the nondependent wall. The appendix is partially ai r-filled and within normal limits of size. OTHER: Bilateral fat filled inguinal hernias are present, right greater than left with small bowel lo op abutting the right inguinal hernia. VASCULATURE: Fusiform ectasia of the infrarenal abdominal aorta is seen at the level of L3 spanning 3 .6 cm in length measuring 2.4 cm in anterior posterior dimension. IMPRESSION: 1. NO EVIDENCE OF VISCERAL OR OSSEOUS METASTASIS. ALTHOUGH EVALUATION FOR VISCERAL METASTASIS IS SLIG HTLY DIMINISHED GIVEN HEPATIC STEATOSIS AND LACK OF INTRAVENOUS CONTRAST. 2. LONG SEGMENT BOWEL WALL THICKENING OF THE SIGMOID COLON WHICH MAY CORRESPOND TO THE PATIENT'S KNOW N COLON CARCINOMA THERE ARE NO POSTSURGICAL CHANGES VISUALIZED.
== END | disposition home or self-care (01) ==
LOC: RADCTMAIN 11:58
PROVIDERS: ATTEND Surgery
DX: C18.9 Malignant neoplasm of colon, unspecified (principal); K76.0 Fatty (change of) liver, not elsewhere classified
CPT/HCPCS: 36415; 74176; 82378; 82565; 84520

== ENCOUNTER → 2017-07-10 | Outpatient (CLI) | payer MEDICARE, OTHER | END | disposition home or self-care (01) | LOC: LABPAT 13:33 → LABWHC1 13:33 | PROVIDERS: ATTEND Surgery | DX: Z01.818 Encounter for other preprocedural examination (principal); I10 Essential (primary) hypertension | CPT/HCPCS: 36415; 93005 ==

== ENCOUNTER 2017-07-26 08:05 | Day surgery (SDC) | payer MEDICARE, OTHER ==
[2017-07-25 08:27] VITALS: BMI 34.7
[~2017-07-26 08:05] MED LIST changes: +LACTATED RINGERS 1,000 ML IV SCH; -SODIUM CHLORIDE 0.9% 1,000 ML in EMPTY BAG 1 BAG IV ONE
[2017-07-26] MEDS ORDERED: MIDAZOLAM 2 MG/2 ML VIAL ONE (08:42)
[2017-07-26] MEDS ORDERED: PROPOFOL 10 MG/ML 20 ML VIAL IV ONE (08:42)
[2017-07-26 08:48] LABS: Glucose,Whole Blood 126 mg/dL (75-99)
--- NOTE | 2017-07-26 09:55 | P.OP ---
Date of Procedure: 08/02/17 Preoperative Diagnosis: Ascending colon cancer Postoperative Diagnosis: Mulitple polyps Extensive descenindg colon and sigmoid diverticulosis: Procedure(s) Performed: Colonoscopy with biopsy using hot snare and cold biopsy forcep spot marking of suspicious polyps Implants: Anesthesia: XIANG Surgeon: Festus Salas Condition: stable Indications for Procedure: Biopsy proven colon cancer and ascending colon, thickening of the sigmoid colon on CAT scan. Marking of the suspicious polyps Operative Findings: 1- cecal biopsy 2- ascending colon polyp 75 cm from anus and 10 cm poximal from cecum 3- proximal transverse colon polyp (marked with spot) 4- Mid transverse polyp 5--Descending colon polyp 6-Descending colon biopsy at 45 cm 7-Sigmoid biospy 8- REctrosigmoid polyps 9- Multiple rectal polyps in mid to lower rectum Description of Procedure: The patient was brought to the endoscopy suite and placed in lateral decubitus position. IV sedation was given as per anesthesia team. A timeout was performed to verify correct patient and correct procedure.Perianal examination did not reveal any external hemorrhoids. Digital rectal examination was performed. Minimally enlarged prostate. A well- lubricated endoscope was passed per rectally and was gradually advanced beyond the sigmoid colon, splenic flexure, transverse colon, hepatic flexure and cecum. The ileocecal valve was visualized. There was extensive diverticulosis with thickening and a lot of spasm in the sigmoid there is decreased amount of diverticulosis in the descending colon transverse colon and minimal in the ascending colon. As noted the sigmoid colon seemed thickened probably due to the extensive diverticulosis. There were multiple polyps that were noted throughout the colon. All of them have been noted the larger polyps in the ascending colon and the proximal transverse colon were all marked with spot ink. Further polyps were found in the mid traps: Ascending colon sigmoid colon and rectum which were all biopsied as well.. Bowel prep was good. The scope was gradually withdrawn. Patient tolerated the procedure well and was taken to post anesthesia care unit in stable condition. Recommend repeat colonoscopy in 1 years=
[2017-07-26 10:06] VITALS: TEMP 98
[2017-07-26 10:27] VITALS: RESP 16
[2017-07-26 10:54] VITALS: BP 117/61; PULSE 61
== END 2017-07-26 11:25 | disposition home or self-care (01) ==
LOC: ORWHC2ENDO 08:05
PROVIDERS: ATTEND Surgery
DX: K63.5 Polyp of colon (principal); C18.2 Malignant neoplasm of ascending colon; K62.1 Rectal polyp; K57.30 Diverticulosis of large intestine without perforation or abscess without bleeding; I25.10 Atherosclerotic heart disease of native coronary artery without angina pectoris; I10 Essential (primary) hypertension; E78.5 Hyperlipidemia, unspecified; H35.30 Unspecified macular degeneration; K21.9 Gastro-esophageal reflux disease without esophagitis; Z87.891 Personal history of nicotine dependence; Z95.810 Presence of automatic (implantable) cardiac defibrillator; I25.2 Old myocardial infarction; Z91.041 Radiographic dye allergy status; Z79.84 Long term (current) use of oral hypoglycemic drugs; Z79.02 Long term (current) use of antithrombotics/antiplatelets; Z79.82 Long term (current) use of aspirin; Z79.899 Other long term (current) drug therapy
CPT/HCPCS: 88305; 45380; 45385; 44404; J2250; J2704

== ENCOUNTER → 2017-10-11 | Outpatient (CLI) | payer MEDICARE, OTHER ==
[2017-10-11 14:51] LABS: ALT 53 U/L (21-72); AST 38 U/L (17-59); Cholesterol 146 mg/dL (<200); HDL Cholesterol 41 mg/dL (40-60)
== END | disposition home or self-care (01) ==
LOC: LABWHC1 13:53
PROVIDERS: ATTEND Internal Medicine Interventional Cardiology
DX: E78.2 Mixed hyperlipidemia (principal)
CPT/HCPCS: 36415; 80061; 84450; 84460

== ENCOUNTER 2018-04-04 18:11 | Emergency (ER) | payer MEDICARE, OTHER ==
[2018-04-04 18:20] VITALS: RESP 18; TEMP 97.4
[2018-04-04] MEDS ORDERED: SODIUM CHLORIDE 0.9% 1,000 ML IV STA ×2 (18:38→20:16)
--- NOTE | 2018-04-04 18:51 | ED ---
General Adult HPI - General Chief complaint: Alcohol Stated complaint: Lethargy Time Seen by Provider: 04/04/18 18:17 Source: EMS, RN notes reviewed, old records reviewed Mode of arrival: EMS Limitations: no limitations - History of Present Illness Initial comments: This is a 72-year-old male to the ER for evaluation. Today he presents for evaluation regarding altered mental status. Family and cracking machine operator do admit the patient was drinking today patient herself admits to be to being drinking today mailroom clerk says she gave him one drink patient says he had 3 drinks patient also has history of multiple falls, acting incoherent slurring speech - Related Data Home Medications Medication Instructions Recorded Confirmed Aspirin 81 mg PO HS 05/11/15 04/04/18 Ferrous Sulfate [Feosol] 325 mg PO HS 05/11/15 04/04/18 Lansoprazole [Prevacid] 30 mg PO QAM 05/11/15 04/04/18 Vit A/Vit C/Vit E/Zinc/Copper 1 cap PO QAM 05/11/15 04/04/18 [ICAPS SOFTGEL] amLODIPine [Norvasc] 5 mg PO BID 05/11/15 04/04/18 Clopidogrel [Plavix] 75 mg PO QAM 11/29/15 04/04/18 Lisinopril [Zestril] 20 mg PO BID 09/28/16 04/04/18 Spironolactone [Aldactone] 25 mg PO QAM 04/17/17 04/04/18 Fenofibrate Nanocrystallized 145 mg PO QAM 07/09/17 04/04/18 [Tricor] metFORMIN HCL [Glucophage Xr] 500 mg PO QAM 07/09/17 04/04/18 Atorvastatin [Lipitor] 80 mg PO HS 04/04/18 04/04/18 Cyanocobalamin (Vitamin B-12) 1,000 mcg PO QAM 04/04/18 04/04/18 [Vitamin B-12] Metoprolol Tartrate [Lopressor] 100 mg PO BID 04/04/18 04/04/18 Niacin 500 mg PO HS 04/04/18 04/04/18 Allergies Allergy/AdvReac Type Severity Reaction Status Date / Time Iodinated Contrast- Oral and Allergy Rash/Hives, Verified 04/04/18 18:57 IV Dye scabs, [Iodinated Contrast Media - peeling IV Dye] skin Review of Systems ROS Statement: Those systems with pertinent positive or pertinent negative responses have been documented in the HPI. ROS Other: All systems not noted in ROS Statement are negative. Past Medical History Past Medical History: Coronary Artery Disease (CAD), Diabetes Mellitus, Eye Disorder, GERD/Reflux, Hearing Disorder / Deafness, Hyperlipidemia, Hypertension , Myocardial Infarction (MD), Osteoarthritis (OA), Vascular Disorder Additional Past Medical History / Comment(s): PAD. HX GLAUCOMA, MACULAR DEGENERATION, Last Myocardial Infarction Date:: 01/19/15 History of Any Multi-Drug Resistant Organisms: None Reported Past Surgical History: AICD, Cardiac Valve Replacement, Coronary Bypass/CABG, Heart Catheterization, Pacemaker, Tonsillectomy Additional Past Surgical History / Comment(s): EXC CYST LT LOWER BACK. LASER KENA EYES.CABG 4 vessel - 01/2015, W/ Aortic Valve Replacement - 01/2015. TOTAL 12 STENTS IN KENA LE. aortograms,ANGIOPLASTY BOTH LEGS Past Anesthesia/Blood Transfusion Reactions: No Reported Reaction Date of Last Stent Placement:: unknown Type of Cardiac Device: AICD Device Placement Date:: 11/20/16 Past Psychological History: No Psychological Hx Reported Smoking Status: Former smoker Past Alcohol Use History: Heavy Past Drug Use History: None Reported - Past Family History Father Family Medical History: Congestive Heart Failure (CHF) Mother Family Medical History: Cancer Additional Family Medical History / Comment(s): Uterine Cancer General Exam Limitations: no limitations General appearance: appears intoxicated Head exam: Present: atraumatic, normocephalic, normal inspection Eye exam: Present: normal appearance, PERRL, EOMI. Absent: scleral icterus, conjunctival injection, periorbital swelling ENT exam: Present: normal exam, mucous membranes moist Neck exam: Present: normal inspection. Absent: tenderness, meningismus, lymphadenopathy Respiratory exam: Present: normal lung sounds bilaterally. Absent: respiratory distress, wheezes, rales, rhonchi, stridor Cardiovascular Exam: Present: regular rate, normal rhythm, normal heart sounds. Absent: systolic murmur, diastolic murmur, rubs, gallop, clicks GI/Abdominal exam: Present: soft, normal bowel sounds. Absent: distended, tenderness, guarding, rebound, rigid Extremities exam: Present: normal inspection, full ROM, normal capillary refill. Absent: tenderness, pedal edema, joint swelling, calf tenderness Back exam: Present: normal inspection Neurological exam: Present: alert, oriented X3, CN II-XII intact Psychiatric exam: Present: normal affect, normal mood Skin exam: Present: warm, dry, intact, normal color. Absent: rash Course Vital Signs 04/04/18 04/04/18 18:16 19:06 Temperature 97.4 F L Pulse Rate 69 74 Respiratory 18 18 Rate Blood Pressure 120/60 117/66 O2 Sat by Pulse 99 99 Oximetry - Reevaluation(s) Reevaluation #1: 04/04/18 19:52 Patient is adequately intoxicated with CARMITA of 171 Medical Decision Making - Medical Decision Making 72 male the ER for altered mental state slurred speech positive significant alcohol intoxication. Patient does have cracking machine operator at bedside who can be discharged home - Lab Data Result diagrams: 04/04/18 18:38 04/04/18 18:38 Lab Results 04/04/18 04/04/18 04/04/18 Range/Units 18:38 18:38 18:38 WBC 9.4 (3.8-10.6) k/uL RBC 4.14 L (4.30-5.90) m/uL Hgb 12.2 L (13.0-17.5) gm/dL Hct 37.5 L (39.0-53.0) % MCV 90.5 (80.0-100.0) fL MCH 29.5 (25.0-35.0) pg MCHC 32.6 (31.0-37.0) g/dL RDW 13.4 (11.5-15.5) % Plt Count 251 (150-450) k/uL Neutrophils % 66 % Lymphocytes % 23 % Monocytes % 7 % Eosinophils % 2 % Basophils % 0 % Neutrophils # 6.2 (1.3-7.7) k/uL Lymphocytes # 2.1 (1.0-4.8) k/uL Monocytes # 0.7 (0-1.0) k/uL Eosinophils # 0.2 (0-0.7) k/uL Basophils # 0.0 (0-0.2) k/uL Sodium 142 (137-145) mmol/L Potassium 4.9 (3.5-5.1) mmol/L Carbon Dioxide 18 L (22-30) mmol/L BUN 27 H (9-20) mg/dL Creatinine 1.50 H (0.66-1.25) mg/dL Est GFR (CKD-EPI)AfAm 54 (>60 ml/min/1.73 sqM) Est GFR (CKD-EPI)NonAf 46 (>60 ml/min/1.73 sqM) Glucose 95 (74-99) mg/dL Calcium 8.6 (8.4-10.2) mg/dL Total Bilirubin 0.3 (0.2-1.3) mg/dL AST 37 (17-59) U/L ALT 33 (21-72) U/L Alkaline Phosphatase 49 (38-126) U/L Total Creatine Kinase 552 H (55-170) U/L CK-MB (CK-2) 5.1 H* (0.0-2.4) ng/mL CK-MB (CK-2) Rel Index 0.9 Total Protein 6.3 (6.3-8.2) g/dL Albumin 4.2 (3.5-5.0) g/dL Lipase 265 (23-300) U/L Urine Color Urine Appearance (Clear) Urine pH (5.0-8.0) Ur Specific [place] (1.001-1.035) Urine Protein (Negative) Urine Glucose (UA) (Negative) Urine Ketones (Negative) Urine Blood (Negative) Urine Nitrite (Negative) Urine Bilirubin (Negative) Urine Urobilinogen (<2.0) mg/dL Ur Leukocyte Esterase (Negative) Salicylates <1.0 mg/dL Urine Opiates Screen (NotDetected) Ur Oxycodone Screen (NotDetected) Urine Methadone Screen (NotDetected) Ur Propoxyphene Screen (NotDetected) Acetaminophen <10.0 ug/mL Ur Barbiturates Screen (NotDetected) U Tricyclic Antidepress (NotDetected) Ur Phencyclidine Scrn (NotDetected) Ur Amphetamines Screen (NotDetected) U Methamphetamines Scrn (NotDetected) U Benzodiazepines Scrn (NotDetected) Urine Cocaine Screen (NotDetected) U Marijuana (THC) Screen (NotDetected) Serum Alcohol 226 mg/dL 04/04/18 Range/Units 19:30 WBC (3.8-10.6) k/uL RBC (4.30-5.90) m/uL Hgb (13.0-17.5) gm/dL Hct (39.0-53.0) % MCV (80.0-100.0) fL MCH (25.0-35.0) pg MCHC (31.0-37.0) g/dL RDW (11.5-15.5) % Plt Count (150-450) k/uL Neutrophils % % Lymphocytes % % Monocytes % % Eosinophils % % Basophils % % Neutrophils # (1.3-7.7) k/uL Lymphocytes # (1.0-4.8) k/uL Monocytes # (0-1.0) k/uL Eosinophils # (0-0.7) k/uL Basophils # (0-0.2) k/uL Sodium (137-145) mmol/L Potassium (3.5-5.1) mmol/L Carbon Dioxide (22-30) mmol/L BUN (9-20) mg/dL Creatinine (0.66-1.25) mg/dL Est GFR (CKD-EPI)AfAm (>60 ml/min/1.73 sqM) Est GFR (CKD-EPI)NonAf (>60 ml/min/1.73 sqM) Glucose (74-99) mg/dL Calcium (8.4-10.2) mg/dL Total Bilirubin (0.2-1.3) mg/dL AST (17-59) U/L ALT (21-72) U/L Alkaline Phosphatase (38-126) U/L Total Creatine Kinase (55-170) U/L CK-MB (CK-2) (0.0-2.4) ng/mL CK-MB (CK-2) Rel Index Total Protein (6.3-8.2) g/dL Albumin (3.5-5.0) g/dL Lipase (23-300) U/L Urine Color Yellow Urine Appearance Clear (Clear) Urine pH 5.0 (5.0-8.0) Ur Specific [place] 1.009 (1.001-1.035) Urine Protein Negative (Negative) Urine Glucose (UA) Negative (Negative) Urine Ketones Negative (Negative) Urine Blood Negative (Negative) Urine Nitrite Negative (Negative) Urine Bilirubin Negative (Negative) Urine Urobilinogen <2.0 (<2.0) mg/dL Ur Leukocyte Esterase Negative (Negative) Salicylates mg/dL Urine Opiates Screen Not Detected (NotDetected) Ur Oxycodone Screen Not Detected (NotDetected) Urine Methadone Screen Not Detected (NotDetected) Ur Propoxyphene Screen Not Detected (NotDetected) Acetaminophen ug/mL Ur Barbiturates Screen Not Detected (NotDetected) U Tricyclic Antidepress Not Detected (NotDetected) Ur Phencyclidine Scrn Not Detected (NotDetected) Ur Amphetamines Screen Not Detected (NotDetected) U Methamphetamines Scrn Not Detected (NotDetected) U Benzodiazepines Scrn Not Detected (NotDetected) Urine Cocaine Screen Not Detected (NotDetected) U Marijuana (THC) Screen Not Detected (NotDetected) Serum Alcohol mg/dL - Radiology Data Radiology results: report reviewed (CT brain C-spine negative for traumatic injury), image reviewed Disposition Clinical Impression: Alcoholic intoxication Disposition: HOME SELF-CARE Condition: Good Instructions: Alcohol Intoxication (ED) Is patient prescribed a controlled substance at d/c from ED?: No Referrals: Donte Sandoval DO [Primary Care Provider] - 1-2 days
[2018-04-04 19:07] VITALS: PULSE 74
--- NOTE | 2018-04-04 19:38 | CT ---
EXAMINATION TYPE: CT brain [facility] DATE OF EXAM: 04/04/2018 COMPARISON: NONE HISTORY: 72-year-old male Confusion, fall injury CT DLP: 1435.6 mGycm Automated exposure control for dose reduction was used. Technique: Examination of the head was done in axial plane without intravenous contrast. Coronal and sagittal reconstructions performed. CT of the cervical spine was obtained in axial plane without intravenous injection of contrast mater ial. Coronal and sagittal reformatted images were obtained from the axial views for evaluation of f ractures, spinal alignment and canal. FINDINGS: Head: There is no evidence of acute intracranial hemorrhage, acute ischemic changes, mass, mass-effect, or extra-axial fluid collection. There is no effacement of cerebral sulci or basal subarachnoid cister ns. There is no hydrocephalus. There is no midline shift. Story-white matter distinction is preserv ed. Mild generalized cerebral cortical atrophy. Mild mucosal thickening throughout the ethmoid air cells. Mastoid air cells are well pneumatized. Orb its and globes appear intact. Cervical spine: No craniocervical junction abnormality, predental space widening, or prevertebral soft tissue swellin g. There is trace grade 1 anterolisthesis at C3-C4 C7-T1, and T1-T2 secondary to hypertrophic facet arth ropathy. Severe disc/endplate degenerative changes particularly the from C4 through C7 levels. There are disc osteophyte complexes and some OPLL particularly at these levels causing moderate spinal canal stenosi s with AP canal dimension narrowed to 7.2 mm. No acute fracture of the cervical spine. Variable multilevel neuroforaminal stenoses, moderate to severe on the right at C3-C4, moderate on th e left at C4-C5, moderate to severe on the right at C5-C6 and moderate on the left at this level. Mod erate to severe bilateral at C6/C7. Sagittal and coronal reformatted images confirm above findings. COMBINED IMPRESSION: 1. Mild generalized cerebral atrophy. No acute intracranial abnormality seen. 2. No acute fracture of the cervical spine. Degenerative grade 1 spondylolisthesis at a few levels in the cervical spine. 3. Moderate to advanced degenerative change in the cervical spine. There is additional OPLL at C4-C7 causing moderate spinal canal stenosis. 4. Additional variable moderate to severe neuroforaminal stenoses as outlined above.
[2018-04-04 19:45] LABS: Basophils % (A) 0 %; Eosinophils # (A) 0.2 k/uL (0-0.7); Eosinophils % (A) 2 %; HCT 37.5 % (39.0-53.0); HGB 12.2 gm/dL (13.0-17.5); Lymphocytes # (A) 2.1 k/uL (1.0-4.8); Lymphocytes % (A) 23 %; MCH 29.5 pg (25.0-35.0); MCHC 32.6 g/dL (31.0-37.0); MCV 90.5 fL (80.0-100.0); Mean Platelet Volume 8.7; Monocytes # (A) 0.7 k/uL (0-1.0); Monocytes % (A) 7 %; Neutrophils # (A) 6.2 k/uL (1.3-7.7); Neutrophils % (A) 66 %; Platelet Count 251 k/uL (150-450); RBC 4.14 m/uL (4.30-5.90); RDW 13.4 % (11.5-15.5); WBC 9.4 k/uL (3.8-10.6)
[2018-04-04 19:46] LABS: Appearance,Urine Clear (Clear); Bilirubin,Urine Negative (Negative); Blood,Urine Negative (Negative); Color,Urine Yellow; Glucose,Urine (UA) Negative (Negative); Ketones,Urine Negative (Negative); Leukocyte Esterase,Urine Negative (Negative); Nitrite,Urine Negative (Negative); Protein,Urine Negative (Negative); Specific Gravity,Urine 1.009 (1.001-1.035); Urobilinogen,Urine <2.0 mg/dL (<2.0)
[2018-04-04] MEDS ORDERED: PROCHLORPERAZINE 10 MG TAB PO STA (19:52)
[2018-04-04 20:01] LABS: ALT 33 U/L (21-72); AST 37 U/L (17-59); Acetaminophen <10.0 ug/mL; Albumin 4.2 g/dL (3.5-5.0); Alkaline Phosphatase 49 U/L (38-126); Blood Urea Nitrogen 27 mg/dL (9-20); Calcium 8.6 mg/dL (8.4-10.2); Carbon Dioxide 18 mmol/L (22-30); Glucose 95 mg/dL (74-99); Lipase 265 U/L (23-300); Potassium 4.9 mmol/L (3.5-5.1); Salicylate <1.0 mg/dL; Sodium 142 mmol/L (137-145); Total Bilirubin 0.3 mg/dL (0.2-1.3); Total Protein 6.3 g/dL (6.3-8.2)
[2018-04-04 20:05] LABS: Alcohol 226 mg/dL
[2018-04-04 20:10] LABS: Amphetamine Screen,Urine Not Detected (NotDetected); Barbiturate Screen,Urine Not Detected (NotDetected); Benzodiazepines Screen,Urine Not Detected (NotDetected); Cocaine Screen,Urine Not Detected (NotDetected); Methadone Screen, Urine Not Detected (NotDetected); Opiate Screen,Urine Not Detected (NotDetected); Oxycodone Screen, Urine Not Detected (NotDetected); Phencyclidine Screen,Urine Not Detected (NotDetected); Tricyclic Antidepressant,Urine Not Detected (NotDetected); Urn Cannabinoid Scrn Not Detected (NotDetected)
[2018-04-04 20:13] LABS: Creatine Kinase MB 5.1 ng/mL (0.0-2.4)
[2018-04-04 20:17] LABS: Anion Gap 19 mmol/L; Chloride 105 mmol/L (98-107)
[2018-04-04 20:39] VITALS: BP 123/61
== END 2018-04-04 21:00 | disposition home or self-care (01) ==
LOC: EC 18:11
DX: F10.120 Alcohol abuse with intoxication, uncomplicated (principal); I25.10 Atherosclerotic heart disease of native coronary artery without angina pectoris; E11.9 Type 2 diabetes mellitus without complications; K21.9 Gastro-esophageal reflux disease without esophagitis; E78.5 Hyperlipidemia, unspecified; I10 Essential (primary) hypertension; I25.2 Old myocardial infarction; Z95.810 Presence of automatic (implantable) cardiac defibrillator; Z95.2 Presence of prosthetic heart valve; Z95.1 Presence of aortocoronary bypass graft; Z95.818 Presence of other cardiac implants and grafts; Z87.891 Personal history of nicotine dependence; Z79.82 Long term (current) use of aspirin; Z79.02 Long term (current) use of antithrombotics/antiplatelets; Z79.84 Long term (current) use of oral hypoglycemic drugs; Z79.899 Other long term (current) drug therapy; Z91.041 Radiographic dye allergy status; Y90.6 Blood alcohol level of 120-199 mg/100 ml
CPT/HCPCS: 36415; 70450; 72125; 80053; 80306; 80320; 81003; 82075; 82550; 82553; 83520; 83690; 85025; 96360; 96361; 99285